=== PATIENT | female | born 1950 | race Caucasian/White ===

== ENCOUNTER 2016-03-11 07:02 | Emergency (ER) | payer BC ==
[2016-03-11 07:13] VITALS: BP 96/55
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
== END 2016-03-11 07:46 | disposition home or self-care (01) ==
LOC: UCCORT 07:02
DX: J20.9 Acute bronchitis, unspecified (principal); Z88.0 Allergy status to penicillin; Z88.2 Allergy status to sulfonamides; Z87.891 Personal history of nicotine dependence
CPT/HCPCS: 99212; G0463

== ENCOUNTER 2016-03-27 07:55 | Emergency (ER) | payer BC ==
[2016-03-27 08:21] VITALS: BP 130/66
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
[2016-03-27] MEDS ORDERED: Acetaminophen TAB* 325 MG PO ONE (08:25)
--- NOTE | 2016-03-27 08:42 | RAD ---
INDICATION: Cough and fever COMPARISON: None TECHNIQUE: PA and lateral views of the chest were obtained. FINDINGS: The heart and mediastinum are normal in size and contour. There is mild to moderate prior bronchial cuffing identified on the lateral and AP view images. The lungs are grossly clear. There is no evidence of large pleural effusion. Visualized bones are normal for the patient's age. There is no radiographic evidence of free air beneath the diaphragm IMPRESSION: MILD PERIBRONCHIAL CUFFING CAN BE SEEN IN THE SETTING OF INFLAMMATORY LUNG DISEASE OR VIRAL PNEUMONIA.
== END 2016-03-27 09:16 | disposition home or self-care (01) ==
LOC: UCCORT 07:55
DX: J09.X1 Influenza due to identified novel influenza A virus with pneumonia (principal); J18.8 Other pneumonia, unspecified organism; Z87.891 Personal history of nicotine dependence
CPT/HCPCS: 71020; 87502; 99212; A9270-GY; G0463

== ENCOUNTER 2017-10-27 16:31 | Emergency (ER) | payer MEDICARE, BC ==
[2017-10-27 19:24] VITALS: BP 99/61
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
[2017-10-27] MEDS ORDERED: HYDROcodone/ACETAMIN 5-325 MG* 1 TAB PO ONE (21:24)
--- NOTE | 2017-10-27 21:40 | RAD ---
EXAM: CT Lumbar Spine Without Intravenous Contrast EXAM DATE/TIME: 10/27/2017 8:39 PM CLINICAL HISTORY: 67 years old, female; Pain; Other: Rt sided low back pain with pain radiating down rle; Prior surgery; Surgery date: 1-6 months; Surgery type: L3-5 decompression/laminectomy at [place], [place]; Patient HX: Pt was lifting pots on her patio on wednesday, pain started on wednesday, worsening over past 4 days; Additional info: Rt low back/rt sciatic pain TECHNIQUE: Axial computed tomography images of the lumbar spine without intravenous contrast. All CT scans at this facility use at least one of these dose optimization techniques: automated exposure control; mA and/or kV adjustment per patient size (includes targeted exams where dose is matched to clinical indication); or iterative reconstruction. Coronal and sagittal reformatted images were created and reviewed. COMPARISON: No relevant prior studies available. FINDINGS: Vertebrae: Mild dextroconvex curvature. Grade 1 anterolisthesis of L3 on L4. Vertebral body heights are preserved. Mild to moderate prevertebral osteophytosis. L3-L4: Previous laminectomy without significant central canal stenosis. Moderate bilateral foraminal stenosis. L4-L5: Previous laminectomy without significant central canal stenosis. Moderate to severe right and mild to moderate left foraminal stenosis. No acute fracture. Discs/spinal canal/neural foramina: L1-L2: No significant central or foraminal stenosis. L2-L3: No significant central or foraminal stenosis. L5-S1: No significant central canal stenosis. Moderate right and mild left foraminal stenosis. Soft tissues: Unremarkable. Vasculature: Vascular calcification. IMPRESSION: No acute osseous abnormality. Degenerative in postoperative changes as above.
== END 2017-10-27 21:36 | disposition home or self-care (01) ==
LOC: UCCORT 16:31
DX: M54.30 Sciatica, unspecified side (principal); Z88.0 Allergy status to penicillin; Z88.5 Allergy status to narcotic agent; Z88.2 Allergy status to sulfonamides; Z87.891 Personal history of nicotine dependence
CPT/HCPCS: 72131; 99212; G0463

== ENCOUNTER 2018-12-17 11:04 | Emergency (ER) | payer MEDICARE, BC ==
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
--- OUTSIDE RECORDS SUMMARY | 2018-12-17 12:47 | XMS REPORT | Continuity of Care Document ---
:1950 External Reference #:[id number] Author Name Marc Lazar, Address [address] [place] [address] Care Team Providers Name Role Phone Luisa Patton MD - Family Medicine Care Team Information Child Daycare Worker Stephanie Posadas PT, DPT - Physical Care Team Information Child Daycare Worker Therapist Walter Cruz MD - Neurological Care Team Information Child Daycare Worker Surgery Young Ware Dr Care Team Information Child Daycare Worker [phone] Problems Active Problems Provider Date Allergic rhinitis due to pollen Walter Hannah MD Onset: 04/06/2006 Irritable bowel syndrome Luisa Patton MD Onset: 02/27/2011 Osteopenia Luisa Patton MD Onset: 12/16/2015 Mixed hyperlipidemia Luisa Patton MD Onset: 12/17/2016 Thoracic and lumbosacral neuritis Luisa Patton MD Onset: 03/08/2018 Social History Type Date Description Comments Sex Unknown Tobacco Use Start: 02[birth year]08/65 End: Former Cigarette Smoker 02/08/86 Cigarette Use Pack Years - 20 Smoking Status Reviewed: 03/08/18 Former Cigarette Smoker ETOH Use Rarely consumes alcohol Tobacco Use Start: Unknown End: Patient is a former smoker Unknown Exercise Type/Frequency Exercises sporadically Allergies, Adverse Reactions, Alerts Active Allergies Reaction Severity Comments Date Sulfa Rash 04/06/2006 Penicillins Hives 02/27/2011 Medications Active Medications SIG Qnty Indications Ordering Date Provider Diclofenac-Misoprostol 1 by mouth 90tabs M51.16 Marc Lazar, 11/30/2017 three times a DO 75-0.2mg Tablets DR day as needed Tramadol HCL 1 by mouth 60tabs Marc Lazar, 50mg Tablets every 6 hours DO as needed severe pain Hydrocodone-Acetaminophe 2 every 4 hours 30tabs Marc Lazar, n as needeD DO 5-325mg Tablets Cyclobenzaprine HCL take 1 tablet 30tabs Luisa Patton, 10mg by mouth every MD Tablets night at bedtime as needed muscle spasm Tylenol 2 tabs 2-3 Unknown 500mg Tablets times daily as needed Immunizations CPT Code Status Date Vaccine Reaction Lot # [id number] Given 03/07/2018 Pneumococcal 23 Immunization Adult Or Immunosuppressed Patient 58555 Given 11/09/2017 Fluzone Highdose Age 65 And Over Preservative & Antibiotic Free 62633 Given 03/05/2017 Prevnar 13 Pneumococal Conjugate Vaccine Q2039 Given 02/16/2017 Flu Vaccine NOS 96799 Given 11/13/2013 Afluria Or Fluvirin Flu Vac Intramuscular [facility] [address] Refused 02/22/2018 Shingrix (Shingles) Zoster Vaccine HZV, Recombinant , Subunit, Adj 84904 Refused 02/22/2018 Prevnar 13 Pneumococal Conjugate Vaccine Vital Signs Date Vital Result Comment 11/09/2018 4:22pm Weight 128.00 lb Heart Rate 64 /min BP Systolic 110 mmHg BP Diastolic 68 mmHg Respiratory Rate 17 /min Height 63.5 inches 5'3.50" BMI (Body Mass Index) 22.3 kg/m2 10/05/2018 4:19pm Weight 127.00 lb Heart Rate 82 /min BP Systolic 94 mmHg BP Diastolic 54 mmHg Respiratory Rate 16 /min Height 63.5 inches 5'3.50" BMI (Body Mass Index) 22.1 kg/m2 Results Description No Information Available Procedures Date Code Description Status 11/09/2018 42015 Omt 3-4 Body Regions Completed 10/05/2018 11554 Omt 3-4 Body Regions Completed 08/22/2018 88219 Omt 7-8 Body Regions Completed 07/13/2018 31583 Omt 5-6 Body Regions Completed 03/03/2018 [id number] Bone Mineral Density Test Completed 12/13/2015 052872029 Bone Mineral Density Test Completed 09/24/2014 41730717 Mammogram Completed 10/16/2013 [id number] Colonoscopy Completed Medical Devices Description No Information Available Encounters Type Date Location Provider Dx Diagnosis Office Visit 11/09/2018 [facility] Marc Lazar DO M51.16 Intervertebral disc 4:15p disorders w radiculopathy, lumbar region M99.03 Segmental and somatic dysfunction of lumbar region M54.2 Cervicalgia M25.561 Pain in RIGHT knee Office Visit 08/22/2018 4:15p Marc Schaefer DO M51.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, lumbar region M99.03 Segmental and somatic dysfunction of lumbar region M54.2 Cervicalgia Office Visit 07/13/2018 4:15p [facility] Marc Lazar DO M51.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, lumbar region M99.03 Segmental and somatic dysfunction of lumbar region M54.2 Cervicalgia M99.00 Segmental and somatic dysfunction of head region M99.01 Segmental and somatic dysfunction of cervical region M99.04 Segmental and somatic dysfunction of sacral region M99.07 Segmental and somatic dysfunction of upper extremity Assessments Date Code Description Provider 11/09/2018 M51.16 Intervertebral disc disorders with Marc Lazar DO radiculopathy, lumbar reg 11/09/2018 M99.03 Segmental and somatic dysfunction of lumbar Marc Lazar , DO region 11/09/2018 M54.2 Cervicalgia Marc Lazar, 11/09/2018 M25.561 Pain in RIGHT knee Marc Lazar DO 10/05/2018 M51.16 Intervertebral disc disorders with Marc Lazar DO radiculopathy, lumbar reg 10/05/2018 M99.03 Segmental and somatic dysfunction of lumbar Marc Lazar , region 10/05/2018 M54.2 Cervicalgia Marc Lazar, 10/05/2018 M25.561 Pain in RIGHT knee Marc Lazar, 08/22/2018 M51.16 Intervertebral disc disorders with Marc Lazar DO radiculopathy, lumbar reg 08/22/2018 M99.03 Segmental and somatic dysfunction of lumbar Marc Lazar , DO region 08/22/2018 M54.2 Cervicalgia Marc Lazar, 07/13/2018 M51.16 Intervertebral disc disorders with Marc Lazar DO radiculopathy, lumbar reg 07/13/2018 M99.03 Segmental and somatic dysfunction of lumbar Lori LazarDO keiko region 07/13/2018 M54.2 Cervicalgia Marc Lazar DO 07/13/2018 M99.00 Segmental and somatic dysfunction of head Nagi Marc, DO region 07/13/2018 M99.01 Segmental and somatic dysfunction of cervical Nagi Marc, DO region 07/13/2018 M99.04 Segmental and somatic dysfunction of sacral Nagi Marc , DO region 07/13/2018 M99.07 Segmental and somatic dysfunction of upper Nagi Marc , DO extremity Plan of Treatment Future Appointment(s):12/15/2018 4:15 pm - Marc Lazar DO at [facility]03/02/2019 7:30 am - Schedule, Laboratory at [facility]03/09/2019 10:30 am - Luisa Patton MD at [facility]11/09/2018 - Marc Lazar, DOM51.16 Intervertebral disc disorders with radiculopathy, lumbar regComments:MRI has shown that she has a large disc herniation at L3-L4 and a smaller one at L4-L5. She had an L3-L4 decompression. Doing better after last facet injection in 01/25 and 04/26. No longer on regular pain medications other than Diclofenac 2-3 times a day. Uses hydrocodone or tramadol sparingly now. Treated with a manipulation today and she tolerated this well.Follow up:The patient will follow up with me as scheduled.M99.03 Segmental and somatic dysfunction of lumbar regionComments:4 areas- lumbar, sacrum, piriformis, and pelvis- treated with OMT as noted [id number] CervicalgiaComments:Pt has neck pain with spasm on the R. She has some moderate degenerative changes on x-ray. Will see her back and will do another manipulation in the future if needed.M25.561 Pain in RIGHT kneeComments: MRI was reviewed with the patient. Recommended facet injection and has been waiting for it. Encourage the patient to follow up with Ortho, Functional Status Description No Information Available Mental Status Description No Information Available Referrals Description No Information Available
--- OUTSIDE RECORDS SUMMARY | 2018-12-17 12:47 | XMS REPORT | Continuity of Care Document ---
:1950 External Reference #:[id number] Author Name Marc Lazar, Address [address] [place] [address] Care Team Providers Name Role Phone Luisa Patton MD - Family Medicine Care Team Information Communication Lecturer [phone] Stephanie Posadas PT, DPT - Physical Care Team Information Communication Lecturer Therapist Walter Cruz MD - Neurological Care Team Information Communication Lecturer Surgery Young [address] Care Team Information Communication Lecturer [phone] Problems Active Problems Provider Date Allergic rhinitis [...] Code Status Date Vaccine Reaction Lot # [id number] Given 12/01/2018 Influenza Vac, Quadrivalent, Split, 0.5mL Dosage, Im Use 64763 Given 03/07/2018 Pneumococcal 23 Immunization Adult Or Immunosuppressed Patient 50627 Given 11/09/2017 Fluzone Highdose Age 65 And Over Preservative & Antibiotic Free 36385 Given 03/05/2017 Prevnar 13 Pneumococal Conjugate Vaccine Q2039 Given 02/16/2017 Flu Vaccine NOS 61918 Given 11/13/2013 Afluria Or Fluvirin Flu Vac Intramuscular [facility] 27570 Refused 02/22/2018 Shingrix (Shingles) Zoster Vaccine HZV, Recombinant , Subunit, Adj 54952 Refused 02/22/2018 Prevnar 13 Pneumococal Conjugate Vaccine Vital Signs Date Vital Result Comment 12/15/2018 4:13pm Weight 129.00 lb Heart Rate 76 /min BP Systolic 106 mmHg BP Diastolic 68 mmHg Respiratory Rate 17 /min Height 63.5 inches 5'3.50" BMI (Body Mass Index) 22.5 kg/m2 11/09/2018 4:22pm Weight 128.00 lb Heart Rate 64 /min BP Systolic 110 mmHg BP Diastolic 68 mmHg Respiratory Rate 17 /min Height 63.5 inches 5'3.50" BMI (Body Mass Index) 22.3 kg/m2 Results Description No Information Available Procedures Date Code Description Status 12/15/2018 95942 Omt 5-6 Body Regions Completed 11/09/2018 95125 Omt 3-4 Body Regions Completed 10/05/2018 29734 Omt 3-4 Body Regions Completed 08/22/2018 83550 Omt 7-8 Body Regions Completed 07/13/2018 81794 Omt 5-6 Body Regions Completed 03/03/2018 198924855 Bone Mineral Density Test Completed 12/13/2015 958471155 Bone Mineral Density Test Completed 09/24/2014 80785620 Mammogram Completed 10/16/2013 80073272 Colonoscopy Completed Medical Devices Description No Information Available Encounters Type Date Location Provider Dx Diagnosis Office Visit 11/09/2018 [facility] Marc Lazar DO M51.16 Intervertebral disc 4:15p disorders w radiculopathy, lumbar region M99.03 Segmental and somatic dysfunction of lumbar region M54.2 Cervicalgia M25.561 Pain in RIGHT knee M99.04 Segmental and somatic dysfunction of sacral region M99.05 Segmental and somatic dysfunction of pelvic region Office Visit 10/05/2018 4:15p [facility] Marc Lazar DO M51.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, lumbar region M99.03 Segmental and somatic dysfunction of lumbar region M54.2 Cervicalgia M25.561 Pain in RIGHT knee M99.04 Segmental and somatic dysfunction of sacral region M99.05 Segmental and somatic dysfunction of pelvic region Office Visit 08/22/2018 4:15p [facility] Marc Lazar DO M51.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, lumbar region M99.03 Segmental and somatic dysfunction of lumbar region M54.2 Cervicalgia Office Visit 07/13/2018 4:15p [facility] Marc Lazar DO M51.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, lumbar region M99.03 Segmental and somatic dysfunction of lumbar region M54.2 Cervicalgia M99.00 Segmental and somatic dysfunction of head region M99.01 Segmental and somatic dysfunction of cervical region M99.04 Segmental and somatic dysfunction of sacral region M99.07 Segmental and somatic dysfunction of upper extremity Assessments Date Code Description Provider 12/15/2018 M51.16 Intervertebral disc disorders with Marc Lazar DO radiculopathy, lumbar reg 12/15/2018 M99.03 Segmental and somatic dysfunction of lumbar Marc Lazar DO region 12/15/2018 M54.2 Cervicalgia Marc Lazar DO 12/15/2018 M25.561 Pain in RIGHT knee Marc Lazar DO 11/09/2018 M51.16 Intervertebral disc disorders with Marc Lazar DO radiculopathy, lumbar reg 11/09/2018 M99.03 Segmental and somatic dysfunction of lumbar Marc Lazar , region 11/09/2018 M54.2 Cervicalgia Marc Lazar, DO 11/09/2018 M25.561 Pain in RIGHT knee Marc Lazar, DO 11/09/2018 M99.04 Segmental and somatic dysfunction of sacral Marc Lazar , region 11/09/2018 M99.05 Segmental and somatic dysfunction of pelvic Marc Lazar , DO region 10/05/2018 M51.16 Intervertebral disc disorders with Marc Lazar DO radiculopathy, lumbar reg 10/05/2018 M99.03 Segmental and somatic dysfunction of lumbar Marc Lazar DO region 10/05/2018 M54.2 Cervicalgia Marc Lazar, DO 10/05/2018 M25.561 Pain in RIGHT knee Marc LazarDO 10/05/2018 M99.04 Segmental and somatic dysfunction of sacral Marc Lazar , region 10/05/2018 M99.05 Segmental and somatic dysfunction of pelvic Marc Lazar , region 08/22/2018 M51.16 Intervertebral disc disorders with Marc Lazar DO radiculopathy, lumbar reg 08/22/2018 M99.03 Segmental and somatic dysfunction of lumbar Marc Lazar DO region 08/22/2018 M54.2 Cervicalgia Marc LazarDO 07/13/2018 M51.16 Intervertebral disc disorders with Marc Lazar DO radiculopathy, lumbar reg 07/13/2018 M99.03 Segmental and somatic dysfunction of lumbar Marc Lazar DO region 07/13/2018 M54.2 Cervicalgia Marc LazarDO 07/13/2018 M99.00 Segmental and somatic dysfunction of head LazarMarc laird DO region 07/13/2018 M99.01 Segmental and somatic dysfunction of cervical LazarMarc laird DO region 07/13/2018 M99.04 Segmental and somatic dysfunction of sacral LazarMarc laird DO region 07/13/2018 M99.07 Segmental and somatic dysfunction of upper Marc Lazar DO extremity Plan of Treatment Future Appointment(s):01/16/2019 4:15 pm - Marc Lazar DO at [facility]03/02/2019 7:30 am - Schedule, Laboratory at [facility]03/09/2019 10:30 am - Luisa Patton MD at [facility]12/15/2018 - Marc Lazar, DOM51.16 Intervertebral disc disorders [...] scheduled.M99.03 Segmental and somatic dysfunction of lumbar regionComments:5 areas-thoracic, lumbar, sacrum, piriformis, and pelvis- treated with OMT as noted [id number] CervicalgiaComments:Pt has neck pain with spasm on the R. She has some moderate degenerative changes on x-ray. Will see her back and will do another manipulation in the future if needed.M25.561 Pain in RIGHT knee Functional Status Description No Information Available Mental Status Description No Information Available Referrals Description No Information Available
[2018-12-17 12:55] VITALS: BP 112/62
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
== END 2018-12-17 13:16 | disposition home or self-care (01) ==
LOC: UCCORT 11:04
DX: H10.31 Unspecified acute conjunctivitis, right eye (principal); Z87.891 Personal history of nicotine dependence; Z88.0 Allergy status to penicillin; Z88.2 Allergy status to sulfonamides; Z88.5 Allergy status to narcotic agent
CPT/HCPCS: 99212; G0463

== ENCOUNTER 2019-05-02 15:49 | Emergency (ER) | payer MEDICARE, BC ==
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
[2019-05-02 16:16] VITALS: BP 112/55
[2019-05-02] MEDS ORDERED: Aspirin 81 mg CHEW TAB* 81 MG TAB.CHEW PO ONE (16:48)
--- OUTSIDE RECORDS SUMMARY | 2019-05-02 16:56 | XMS REPORT | Continuity of Care Document ---
:1950 External Reference #:[id number] Author Name Marc Lazar DO (transmitted by agent of provider Holli GREEN) Address [address] [place] [address] Care Team Providers Name Role Phone Luisa Patton MD - Family Medicine Care Team Information Water Pump Assembler Stephanie Posadas PT, DPT - Physical Care Team Information Water Pump Assembler Therapist Walter Cruz MD - Neurological Care Team Information Water Pump Assembler Surgery [address] Care Team Information Water Pump Assembler [phone] Problems Active Problems Provider Date Allergic rhinitis due to pollen Walter Hannah MD Onset: 04/06/2006 Irritable bowel syndrome Luisa Patton MD Onset: 02/27/2011 Osteopenia Luisa Patton MD Onset: 12/16/2015 Mixed hyperlipidemia Luisa Patton MD Onset: 12/17/2016 Thoracic and lumbosacral neuritis Luisa Patton MD Onset: 03/08/2018 Vitamin D deficiency Luisa Patton MD Onset: 03/09/2019 Social History Type Date Description Comments Sex Unknown Tobacco Use Start: 02/08/65 End: Former Cigarette Smoker 02/08/86 Cigarette Use Pack Years - 20 Smoking Status Reviewed: 03/09/19 Former Cigarette Smoker ETOH Use Rarely consumes alcohol Tobacco Use Start: Unknown End: Patient is a former smoker Unknown Exercise Type/Frequency Exercises sporadically Allergies, Adverse Reactions, Alerts Active Allergies Reaction Severity Comments Date Sulfa Rash 04/06/2006 Penicillins Hives 02/27/2011 Medications Active Medications SIG Qnty Indications Ordering Provider Date Vitamin D 1 by mouth every E55.9 Luisa Patton, 03/09/2019 2000Unit day MD Tablets Diclofenac Potassium by mouth three 90tabs M51.16 Luisa Patton, 2019 50mg times a day as MD Tablets needed Pantoprazole Sodium 1 by mouth every 90tabs R07.9 Luisa Patton, 2018 40mg day MD Tablets R10.13 Tramadol HCL 1 by mouth every 6 60tabs Luisa Patton MD 50mg Tablets hours as needed severe pain Hydrocodone-Acetaminophen 2 every 4 hours as 30tabs Marc Lazar DO needeD 5-325mg Tablets Tylenol 2 tabs 2-3 times Unknown 500mg Tablets daily as needed Tizanidine HCL 1 by mouth every Unknown 4mg Tablets night at bedtime for muscle spasms Magnesium 1 by mouth every day Unknown 500mg Capsules Immunizations CPT Code Status Date Vaccine Reaction Lot # [id number] Given 12/01/2018 Influenza Vac, Quadrivalent, Split, 0.5mL Dosage, Im Use 23757 Given 03/07/2018 Pneumococcal 23 Immunization Adult Or Immunosuppressed Patient 92447 Given 11/09/2017 Fluzone Highdose Age 65 And Over Preservative & Antibiotic Free 99370 Given 03/05/2017 Prevnar 13 Pneumococal Conjugate Vaccine Q2039 Given 02/16/2017 Flu Vaccine NOS 03029 Given 11/13/2013 Afluria Or Fluvirin Flu Vac Intramuscular [facility] 46389 Refused 02/22/2018 Shingrix (Shingles) Zoster Vaccine HZV, Recombinant , Subunit, Adj 24720 Refused 02/22/2018 Prevnar 13 Pneumococal Conjugate Vaccine Vital Signs Date Vital Result Comment 04/19/2019 4:23pm Weight 128.00 lb Heart Rate 68 /min BP Systolic 118 mmHg BP Diastolic 68 mmHg Respiratory Rate 18 /min Height 63.5 inches 5'3.50" BMI (Body Mass Index) 22.3 kg/m2 03/30/2019 4:18pm Weight 128.00 lb Heart Rate 72 /min BP Systolic 114 mmHg BP Diastolic 66 mmHg Respiratory Rate 17 /min Height 63.5 inches 5'3.50" BMI (Body Mass Index) 22.3 kg/m2 Results Test Acquired Date Facility Test Result H/L Range Note Laboratory test 03/03/2019 [facility] Vitamin D 25 23 ng/mL Low 30-100 1, 2 finding Hydroxy Comprehensive Met 03/03/2019 [facility] Sodium 143 mmol/L 135-146 3 [facility] Potassium 4.2 mmol/L 3.5-5.2 Chloride# 105 mmol/L 97-110 4 Carbon Dioxide 33 mmol/L 24-34 Calcium 10.0 mg/dL 8.5-10.5 5 Glucose 92 mg/dL 70-105 BUN 19 mg/dL 6-26 Creatinine 0.7 mg/dL 0.5-1.4 Total Protein 6.6 g/dL 6.0-8.0 Albumin 4.6 g/dL 3.6-4.9 Globulin 2.0 g/dL 2.0-3.5 A/G Ratio 2.3 Ratio High 1.0-2.2 Total Bilirubin 0.7 mg/dL 0.1-1.3 Alkaline Phosphatase 70 U/L 24-140 Alt 14 U/L 3-42 Ast 14 U/L 8-42 Anion Gap 5 mmol/L 5-15 6 Female Egfr 90 >60 7 Male Egfr 98 >60 8 CBC With Auto Diff 03/03/2019 [facility] WBC 6.6 K/uL 4.1-11.0 9 RBC 4.22 M/uL 4.00-5.40 10 Hemoglobin 12.9 gm/dL 12.0-16.0 11 Hematocrit 38.2 % 36.0-47.0 12 MCV 90.4 fL 80.0-95.0 13 MCH 30.5 pg 27.0-32.0 14 MCHC 33.8 g/dL 32.0-36.0 15 RDW 12.8 % 10.5-14.5 16 PLT Count 220 K/ul 150-400 17 MPV 9.8 FL 7.1-10.7 Neutrophil 62.1 % 35.0-75.0 18 Lymphocyte 24.8 % 16.0-52.0 19 Monocyte 8.8 % High 0.0-8.0 20 Eosinophil 3.3 % 0.0-5.0 Basophil 1.0 % 0.0-4.0 Abs Neutrophils 4.1 K/uL 1.8-7.7 21 Abs Lymphocytes 1.6 K/uL 1.2-4.8 22 Abs Monocytes 0.6 K/uL 0.0-0.8 23 Abs Eosinophils 0.2 K/uL 0.0-0.5 24 Abs Basophils 0.1 K/uL 0.0-0.2 25 Laboratory test finding 03/03/2019 [facility] TSH 1.26 uIU/mL 0.35-4.94 Lipid 03/03/2019 [facility] Cholesterol 223 mg/dL High 50-199 Triglycerides 57 mg/dL 30-200 HDL 74 mg/dL 35-85 26 Chol/ HDL Ratio 3.0 ratio Low 3.7-5.6 VLDL 11 mg/dL 2-29 LDL (Calc) 138 mg/dL High 20-99 27 CBC with Auto 02/03/2019 [facility] White Blood 7.3 K/uL Normal 3.1-10.7 28 Diff-[facility]cmg (315)- - Count Red Blood Count 4.10 M/uL Normal 3.90-5.40 Hemoglobin 12.2 gm/dL Normal 11.6-15.8 Hematocrit 37.8 % Normal 36.0-46.1 Mean Cell Volume 92.2 fl Normal 80.9-99.0 Mean Corpuscular HGB 29.8 pg Normal 25.9-32.7 Mean Corpuscular HGB Conc 32.3 g/dL Normal 30.8-34.3 Platelet Count 235 K/uL Normal 155-360 Red Cell Distri Width SD 42.1 fl Normal 36-47 Red Cell Distri Width %CV 12.5 % Normal 11.7-14.4 Mean Platelet Volume 11.3 fl Normal 8.9-12.4 Neut% 59.4 % Normal 40.4-72.8 Lymph % 28.5 % Normal 20.0-42.0 [place] % 8.3 % Normal 4.3-13.2 Eo% 2.7 % Normal 0.0-6.6 Bas% 0.8 % Normal 0.0-1.1 Immature Grans 0.3 % Normal 0.0-5.0 NRBC % 0.0 /100WBC < 10/ 100 WBC Neut# 4.35 K/uL Normal 1.8-7.0 Lymph # 2.09 K/uL Normal 1.0-4.0 [place] # 0.61 K/uL Normal 0.3-0.9 Eos # 0.20 K/uL Normal 0.0-0.5 Baso # 0.06 K/uL Normal 0.0-0.1 Immature Grans Absolute 0.02 K/uL NRBC # 0.00 K/uL Comprehensive 02/03/2019 [facility] Glucose 94 mg/dL Normal 74-106 Metabolic Panel (315)- - BUN 18 mg/dL Normal 7-18 Creatinine 0.7 mg/dL Normal 0.6-1.3 Glom Filtration Rate, Estimate >60 mL/min >60 If >60 mL/min >60 29 BUN/Creat 25.7 ratio Sodium 138 mmol/L Normal 136-145 Potassium 3.9 mmol/L Normal 3.5-5.1 Chloride 106 mmol/L Normal 98-107 Carbon Dioxide 29 mmol/L Normal 21-32 Anion Gap 3 mEq/L Low 8-16 Calcium 9.4 mg/dL Normal 8.5-10.1 Total Protein 7.4 g/dL Normal 6.4-8.2 Albumin 4.1 g/dL Normal 3.4-5.0 Globulin 3.3 g/dL Normal 1.9-4.3 Alb/Glob 1.2 ratio Bilirubin,Total 0.5 mg/dL Normal 0.2-1.0 Sgot/Ast 18 U/L Normal 15-37 SGPT/Alt 25 U/L Normal 12-78 Alkaline Phosphatase 75 U/L Normal 45-117 Laboratory test 02/03/2019 [facility] Troponin-I < 0.015 ng/mL 30 finding (315)- - 1 1 year 2 Clinical Guidelines for recommended serum 25(OH)Vitamin D Deficient at less than 20 ng/mL Insufficient at 20 to <30 ng/mL Sufficient at 30-100 ng/mL Toxicity at greater than 100 ng/mL 3 Updated reference range on new analyzer 4 Updated reference range on new analyzer 5 Updated reference range 06-08-2018 6 Updated Reference Range 7 Concerning GFR Guidelines for Americans: Normal function or mild renal disease, if clinically at risk: >/= 60 mL/min Moderately decreased: 30-59 Severely decreased: 15-29 Renal failure: <15 There is reduced accuracy above 60ml/min/1.73 m squared, but the numeric value may be clinically useful in the near 60 range 8 Concerning GFR Guidelines: Normal function or mild renal disease, if clinically at risk: >/= 60 mL/min Moderately decreased: 30-59 Severely decreased: 15-29 Renal failure: <15 There is reduced accuracy above 60ml/min/1.73 m squared, but the numeric value may be clinically useful in the near 60 range Glomerular Filtration Rate (GFR) is estimated based on the CKD-EPI equation, which assumes a steady state for creatinine as recommended by the National Kidney Disease Education Program in conjunction with the National Institutes of Health and the National Kidney Foundation. Clinical conditions in which it may be necessary to measure GFR by using clearance methods include extremes of age and body size, severe malnutrition or obesity, diseases of skeletal muscle, paraplegia or quadriplegia, vegetarian diet, rapidly changing kidney function, and calculation of the dose of potentially toxic drugs that are excreted by the kidneys. 9 Updated Reference Range 12/2018 10 Updated Reference Range 12/2018 11 Updated Reference Range 12/2018 12 Updated Reference Range 12/2018 13 Updated Reference Range 12/2018 14 Updated Reference Range 12/2018 15 Updated Reference range 12/2018 16 Updated Reference range 12/2018 17 Updated Reference Range 12/2018 18 Updated Reference Range 12/2018 19 Updated Reference Range 12/2018 20 Updated Reference Range 12/2018 21 Updated Reference Range 12/2018 22 Updated Reference Range 12/2018 23 Updated Reference Range 12/2018 24 Updated Reference Range 12/2018 25 Updated Reference Range 12/2018 26 Per NCEP ATP III Guidelines: Results lower than 40 mg/dL are suggestive of increased risk for coronary artery disease. Results > or = to 60 mg/dL are considered a negative risk factor. 27 Per NCEP ATP III Guidelines: Normal Population <130 Patients with medical conditions: CHD/DM Optimal: <100 Borderline high: 130-159 High: 160-189 Very high: >189 28 R07.9 29 Note: Persistent reduction for 3 months or more in an eGFR <60 mL/min/1.73 m2 defines CKD. Patients with eGFR values >/=60 mL/min/1.73 m2 may also have CKD if evidence of persistent proteinuria is present. The original MDRD equation for estimated GFR is not valid for patients less than 18 years of age. Additional information may be found at www.kdoqi.org. 30 0.0 - 0.045 ng/mL: Normal 0.046 - 0.5 ng/mL: Suggestive 0.6 - 1.5 ng/mL: Consistent Procedures Date Code Description Status 04/19/2019 73455 Omt 7-8 Body Regions Completed 03/30/2019 53502 Omt 7-8 Body Regions Completed 02/23/2019 41534 Omt 5-6 Body Regions Completed 02/03/2019 54522 Electrocardiogram Complete Completed 01/16/2019 21272 Omt 5-6 Body Regions Completed 12/15/2018 92154 Omt 5-6 Body Regions Completed 11/09/2018 81189 Omt 3-4 Body Regions Completed 03/03/2018 224932990 Bone Mineral Density Test Completed 12/13/2015 128547663 Bone Mineral Density Test Completed 09/24/2014 20050492 Mammogram Completed 10/16/2013 52479785 Colonoscopy Completed Medical Devices Description No Information Available Encounters Type Date Location Provider Dx Diagnosis Office Visit 03/09/2019 [facility] Luisa Patton MD Z00.00 Encntr for general 10:30a adult medical exam w/o abnormal findings Z13.31 Encounter for screening for depression J30.1 Allergic rhinitis due to pollen K58.9 Irritable bowel syndrome without diarrhea M85.80 Oth disrd of bone density and structure, unspecified site E78.2 Mixed hyperlipidemia M51.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, lumbar region E55.9 Vitamin D deficiency, unspecified K21.9 Gastro-esophageal reflux disease without esophagitis Office Visit 02/03/2019 3:15p [facility] Luisa Patton MD R07.9 Chest pain, unspecified R10.13 Epigastric pain M51.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, lumbar region Office Visit 11/09/2018 4:15p [facility] Marc Lazar DO M51.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, lumbar region M99.03 Segmental and somatic dysfunction of lumbar region M54.2 Cervicalgia M25.561 Pain in RIGHT knee M99.04 Segmental and somatic dysfunction of sacral region M99.05 Segmental and somatic dysfunction of pelvic region Assessments Date Code Description Provider 04/19/2019 M51.16 Intervertebral disc disorders with Marc Lazar DO radiculopathy, lumbar reg 04/19/2019 M99.03 Segmental and somatic dysfunction of lumbar Marc Lazar DO region 04/19/2019 M54.2 Cervicalgia Marc Lazar DO 04/19/2019 M25.561 Pain in RIGHT knee Marc Lazar, DO 04/19/2019 K21.9 Gastro-esophageal reflux disease without LazarMarc, esophagitis 04/19/2019 M99.00 Segmental and somatic dysfunction of head LazarMarc laird, DO region 04/19/2019 M99.01 Segmental and somatic dysfunction of cervical LazarMarc laird, DO region 04/19/2019 M99.04 Segmental and somatic dysfunction of sacral LazarMarc laird , DO region 04/19/2019 M99.05 Segmental and somatic dysfunction of pelvic LazarMarc , DO region 04/19/2019 M99.07 Segmental and somatic dysfunction of upper LazarMarc laird , extremity 04/19/2019 M99.09 Segmental and somatic dysfunction of abdomen LazarMarc laird, DO and other regions 03/30/2019 M51.16 Intervertebral disc disorders with Marc Lazar, radiculopathy, lumbar reg 03/30/2019 M99.03 Segmental and somatic dysfunction of lumbar LazarMarc laird , region 03/30/2019 M54.2 Cervicalgia Marc Lazar, DO 03/30/2019 M25.561 Pain in RIGHT knee Marc Lazar, DO 03/30/2019 K21.9 Gastro-esophageal reflux disease without LazarMarc laird DO esophagitis 03/30/2019 M99.00 Segmental and somatic dysfunction of head LazarMarc laird, DO region 03/30/2019 M99.01 Segmental and somatic dysfunction of cervical LazarMarc laird, region 03/30/2019 M99.02 Segmental and somatic dysfunction of thoracic LazarMarc laird, DO region 03/30/2019 M99.04 Segmental and somatic dysfunction of sacral LazarMarc laird , DO region 03/30/2019 M99.05 Segmental and somatic dysfunction of pelvic LazarMarc laird , DO region 03/30/2019 M99.07 Segmental and somatic dysfunction of upper LazarMarc laird , extremity 03/09/2019 Z00.00 Encounter for general adult medical Luisa Patton MD examination without abnormal findings 03/09/2019 Z13.31 Encounter for screening for depression Luisa Patton MD 03/09/2019 J30.1 Allergic rhinitis due to pollen Luisa Patton MD 03/09/2019 K58.9 Irritable bowel syndrome without diarrhea Luisa Patton MD 03/09/2019 M85.80 Osteopenia Luisa Patton MD 03/09/2019 E78.2 Mixed hyperlipidemia Luisa Patton MD 03/09/2019 M51.16 Intervertebral disc disorders with Luisa Patton MD radiculopathy, lumbar region 03/09/2019 E55.9 Vitamin D deficiency, unspecified Luisa Patton MD 03/09/2019 K21.9 Gastro-esophageal reflux disease without Luisa Patton MD esophagitis 03/03/2019 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) [facility] 03/03/2019 M85.80 Other specified disorders of bone density and Luisa Patton MD structure, unspecified site 03/03/2019 M85.80 Other specified disorders of bone density and [facility] structure, unspecified site 03/03/2019 E55.9 Vitamin D deficiency, unspecified [facility] 03/03/2019 K58.9 Irritable bowel syndrome without diarrhea [facility] 03/03/2019 M85.80 Other specified disorders of bone density and Schedule, Laboratory structure, unspecified site 03/03/2019 E78.2 Mixed hyperlipidemia [facility] 03/03/2019 E55.9 Vitamin D deficiency, unspecified Luisa Patton MD 03/03/2019 J30.1 Allergic rhinitis due to pollen [facility] 03/03/2019 Z01.419 Encounter for gynecological examination [facility] (general) (routine) without abnormal findings 03/03/2019 E55.9 Vitamin D deficiency, unspecified Schedule, Laboratory 03/03/2019 K58.9 Irritable bowel syndrome without diarrhea Luisa Patton MD 03/03/2019 K58.9 Irritable bowel syndrome without diarrhea Schedule, Laboratory 03/03/2019 J30.1 Allergic rhinitis due to pollen Luisa Patton MD 03/03/2019 J30.1 Allergic rhinitis due to pollen Schedule, Laboratory 03/03/2019 Z01.419 Encounter for gynecological examination Luisa Ptaton MD (general) (routine) without abnormal findings 03/03/2019 Z01.419 Encounter for gynecological examination Schedule, Laboratory (general) (routine) without abnormal findings 02/23/2019 M51.16 Intervertebral disc disorders with Lazar, Marc, radiculopathy, lumbar reg 02/23/2019 M99.03 Segmental and somatic dysfunction of lumbar LazarMarc laird , DO region 02/23/2019 M54.2 Cervicalgia Marc Lazar, DO 02/23/2019 M25.561 Pain in RIGHT knee Marc Lazar, DO 02/23/2019 K21.9 Gastro-esophageal reflux disease without Marc Lazar, DO esophagitis 02/23/2019 M99.02 Segmental and somatic dysfunction of thoracic LazarMarc laird, DO region 02/23/2019 M99.04 Segmental and somatic dysfunction of sacral LazarMarc laird , DO region 02/23/2019 M99.05 Segmental and somatic dysfunction of pelvic LazarMarc laird , DO region 02/23/2019 M99.09 Segmental and somatic dysfunction of abdomen Marc Lazar, DO and other regions 02/03/2019 R07.9 Chest pain, unspecified Luisa Patton MD 02/03/2019 R10.13 Epigastric pain Luisa Patton MD 02/03/2019 M51.16 Intervertebral disc disorders with Luisa Patton MD radiculopathy, lumbar reg 01/16/2019 M51.16 Intervertebral disc disorders with Lazar Marc, radiculopathy, lumbar reg 01/16/2019 M99.03 Segmental and somatic dysfunction of lumbar LazarMarc laird , DO region 01/16/2019 M54.2 Cervicalgia Marc Lazar, DO 01/16/2019 M25.561 Pain in RIGHT knee Marc Lazar, DO 01/16/2019 M99.02 Segmental and somatic dysfunction of thoracic LazarMarc laird, DO region 01/16/2019 M99.04 Segmental and somatic dysfunction of sacral LazarMarc laird , DO region 01/16/2019 M99.05 Segmental and somatic dysfunction of pelvic LazarMarc laird , DO region 01/16/2019 M99.09 Segmental and somatic dysfunction of abdomen LazarMarc laird, DO and other regions 12/15/2018 M51.16 Intervertebral disc disorders with Nagi Marc, DO radiculopathy, lumbar reg 12/15/2018 M99.03 Segmental and somatic dysfunction of lumbar LazarMarc laird , DO region 12/15/2018 M54.2 Cervicalgia Marc Lazar, DO 12/15/2018 M25.561 Pain in RIGHT knee Marc Lazar, DO 12/15/2018 M99.02 Segmental and somatic dysfunction of thoracic Marc Lazar, region 12/15/2018 M99.04 Segmental and somatic dysfunction of sacral LazarMarc laird , region 12/15/2018 M99.05 Segmental and somatic dysfunction of pelvic LazarMarc laird , region 12/15/2018 M99.06 Segmental and somatic dysfunction of lower LazarMarc laird , DO extremity 11/09/2018 M51.16 Intervertebral disc disorders with Marc Lazar, radiculopathy, lumbar reg 11/09/2018 M99.03 Segmental and somatic dysfunction of lumbar Marc Lazar , region 11/09/2018 M54.2 Cervicalgia Marc Lazar, DO 11/09/2018 M25.561 Pain in RIGHT knee Marc Lazar, DO 11/09/2018 M99.04 Segmental and somatic dysfunction of sacral Marc Lazar , region 11/09/2018 M99.05 Segmental and somatic dysfunction of pelvic Marc Lazar , DO region Plan of Treatment Future Appointment(s):05/17/2019 4:15 pm - Marc Lazar DO at [facility]2020 7:40 am - Schedule, Laboratory at [facility]03/11/2020 1:00 pm - Luisa Patton MD at [facility]04/19/2019 - Marc Lazar, DOM51.16 Intervertebral disc disorders with radiculopathy, lumbar regComments:MRI has shown that she has a large disc herniation at L3-L4 and a smaller one at L4-L5. She had an L3-L4 decompression. Doing better after last facet injection in 01/25 and 04/26. Dr. Patton restarted the Diclofenac. Can use tramadol as needed. Uses hydrocodone sparingly now. Treated with a manipulation today and she tolerated this well. Recommended the patient to have injections as scheduled.Follow up:Follow up as scheduled.M99.03 Segmental and somatic dysfunction of lumbar kgarbkF79.2 CervicalgiaComments:Improved at the present time. Can take Tizandine as needed for this.M25.561 Pain in RIGHT kneeK21.9 Gastro-esophageal reflux disease without esophagitisComments:Continue taking Pantoprazole as directed. Can also take Famotidine. Will continue to monitor.M99.00 Segmental and somatic dysfunction of head sdkbmqS71.01 Segmental and somatic dysfunction of cervical rnkfkqB20.04 Segmental and somatic dysfunction of sacral hynkdhP56.05 Segmental and somatic dysfunction of pelvic rgfzctL48.07 Segmental and somatic dysfunction of upper roicgwfiuT67.09 Segmental and somatic dysfunction of abdomen and other regions Functional Status Description No Information Available Mental Status Description No Information Available Referrals Description No Information Available
--- OUTSIDE RECORDS SUMMARY | 2019-05-02 16:56 | XMS REPORT | Continuity of Care Document ---
:1950 External Reference #:[id number] Author Name Luisa Patton MD Address [address] [place] [address] Care Team Providers Name Role Phone Luisa Patotn MD - Family Medicine Care Team Information Latex Dipper Stephanie Posadas PT, DPT - Physical Care Team Information Latex Dipper [phone] Therapist Walter Cruz MD - Neurological Care Team Information Latex Dipper Surgery [address] Care Team Information Latex Dipper [phone] Problems Active Problems Provider Date Allergic rhinitis [...] Luisa Patton, 2018 40mg day MD Tablets DR R10.13 Tramadol HCL 1 by mouth every 6 60tabs Luisa Patton MD 50mg Tablets hours as needed severe pain Hydrocodone-Acetaminophen 2 every 4 hours as 30tabs Marc Lazar, needeD 5-325mg Tablets Tylenol 2 tabs 2-3 times Unknown 500mg Tablets daily as needed Tizanidine HCL 1 by mouth every Unknown 4mg Tablets night at bedtime for muscle spasms Magnesium 1 by mouth every day Unknown 500mg Capsules Immunizations CPT Code Status Date Vaccine Reaction Lot # [id number] Given 12/01/2018 Influenza Vac, Quadrivalent, Split, 0.5mL Dosage, Im Use 60696 Given 03/07/2018 Pneumococcal 23 Immunization Adult Or Immunosuppressed Patient 03687 Given 11/09/2017 Fluzone Highdose Age 65 And Over Preservative & Antibiotic Free 02913 Given 03/05/2017 Prevnar 13 Pneumococal Conjugate Vaccine Q2039 Given 02/16/2017 Flu Vaccine NOS 08429 Given 11/13/2013 Afluria Or Fluvirin Flu Vac Intramuscular [facility] 56454 Refused 02/22/2018 Shingrix (Shingles) Zoster Vaccine HZV, Recombinant , Subunit, Adj 76569 Refused 02/22/2018 Prevnar 13 Pneumococal Conjugate Vaccine Vital Signs Date Vital Result Comment 03/09/2019 10:53am Weight 125.00 lb Heart Rate 72 /min BP Systolic 112 mmHg BP Diastolic 70 mmHg Respiratory Rate 18 /min Height 63.5 inches 5'3.50" O2 % BldC Oximetry 97 % Ra BMI (Body Mass Index) 21.8 kg/m2 02/23/2019 4:14pm Weight 128.00 lb Heart Rate 84 /min BP Systolic 108 mmHg BP Diastolic 68 mmHg Respiratory Rate [...] K/uL 0.0-0.2 25 Laboratory test finding 03/03/2019 [facility] TSH 1.26 uIU/mL 0.35-4.94 Lipid 03/03/2019 [facility] Cholesterol 223 mg/dL High 50-199 Triglycerides 57 mg/dL 30-200 HDL 74 mg/dL 35-85 26 Chol/ HDL Ratio 3.0 ratio Low 3.7-5.6 VLDL 11 mg/dL 2-29 LDL (Calc) 138 mg/dL High 20-99 27 CBC with Auto 02/03/2019 [facility] White Blood 7.3 K/uL Normal [...] 40.4-72.8 Lymph % 28.5 % Normal 20.0-42.0 Person % 8.3 % Normal 4.3-13.2 Eo% 2.7 % Normal 0.0-6.6 Bas% 0.8 % Normal 0.0-1.1 Immature Grans 0.3 % Normal 0.0-5.0 NRBC % 0.0 /100WBC < 10/ 100 WBC Neut# 4.35 K/uL Normal 1.8-7.0 Lymph # 2.09 K/uL Normal 1.0-4.0 Person # 0.61 K/uL Normal 0.3-0.9 Eos # 0.20 K/uL Normal 0.0-0.5 Baso # 0.06 K/uL Normal 0.0-0.1 Immature Grans Absolute 0.02 K/uL NRBC # 0.00 K/uL Comprehensive 02/03/2019 [facility] Glucose 94 mg/dL Normal 74-106 [...] 75 U/L Normal 45-117 Laboratory test 02/03/2019 [facility] Troponin-I < 0.015 ng/mL 30 [...] ng/mL: Consistent Procedures Date Code Description Status 02/23/2019 57159 Omt 5-6 Body Regions Completed 02/03/2019 33072 Electrocardiogram Complete Completed 01/16/2019 42569 Omt 5-6 Body Regions Completed 12/15/2018 27961 Omt 5-6 Body Regions Completed 11/09/2018 72238 Omt 3-4 Body Regions Completed 10/05/2018 04922 Omt 3-4 Body Regions Completed 03/03/2018 [id number] Bone Mineral Density Test Completed 12/13/2015 023015807 Bone Mineral Density Test Completed 09/24/2014 82981647 Mammogram Completed 10/16/2013 81628783 Colonoscopy Completed Medical Devices Description No Information Available Encounters Type Date Location Provider Dx Diagnosis Office Visit 02/03/2019 [facility] Luisa Patton MD R07.9 Chest pain, 3:15p unspecified R10.13 Epigastric pain M51.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, lumbar region Office Visit 11/09/2018 4:15p [facility] Marc Lazar DO M51.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, lumbar region M99.03 Segmental and somatic dysfunction of lumbar region M54.2 Cervicalgia M25.561 Pain in RIGHT knee M99.04 Segmental and somatic dysfunction of sacral region M99.05 Segmental and somatic dysfunction of pelvic region Office Visit 10/05/2018 4:15p [facility] Marc Lazar DO M51.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, lumbar region M99.03 Segmental and somatic dysfunction of lumbar region M54.2 Cervicalgia M25.561 Pain in RIGHT knee M99.04 Segmental and somatic dysfunction of sacral region M99.05 Segmental and somatic dysfunction of pelvic region Assessments Date Code Description Provider 03/09/2019 Z00.00 Encounter for general adult medical [...] disease without Luisa Patton MD esophagitis 03/03/2019 M85.80 Other specified disorders of bone density and Luisa Patton MD structure, unspecified site 03/03/2019 M85.80 Other specified disorders of bone density and Schedule, Laboratory structure, unspecified site 03/03/2019 E55.9 Vitamin D deficiency, unspecified Luisa Patton MD 03/03/2019 E55.9 Vitamin D deficiency, unspecified Schedule, Laboratory 03/03/2019 K58.9 Irritable bowel syndrome without diarrhea Luisa Patton MD 03/03/2019 K58.9 Irritable bowel syndrome without diarrhea Schedule, Laboratory 03/03/2019 J30.1 Allergic rhinitis due to pollen Luisa Patton MD 03/03/2019 J30.1 Allergic rhinitis due to pollen Schedule, Laboratory 03/03/2019 Z01.419 Encounter for gynecological examination Luisa Patton MD (general) (routine) without abnormal findings 03/03/2019 Z01.419 Encounter for gynecological examination Schedule, Laboratory (general) (routine) without abnormal findings 03/03/2019 M85.80 Oth disrd of bone density and structure, [facility] [place] [facility] unspecified site 03/03/2019 E55.9 Vitamin D deficiency, unspecified [facility] 03/03/2019 K58.9 Irritable bowel syndrome without diarrhea [facility] 03/03/2019 J30.1 Allergic rhinitis due to pollen [facility] 03/03/2019 Z01.419 Encntr for hospital manager exam (general) (routine) w/o [facility] abn findings 02/23/2019 M51.16 Intervertebral disc disorders with Marc Lazar DO radiculopathy, lumbar reg 02/23/2019 M99.03 Segmental and somatic dysfunction of lumbar Marc Lazar DO region 02/23/2019 M54.2 Cervicalgia Marc Lazar DO 02/23/2019 M25.561 Pain in RIGHT knee Marc Lazar DO 02/23/2019 K21.9 Gastro-esophageal reflux disease without Marc Lazar DO esophagitis 02/03/2019 R07.9 Chest pain, unspecified Luisa Patton MD 02/03/2019 R10.13 Epigastric pain Luisa Patton MD 02/03/2019 M51.16 Intervertebral disc disorders with Luisa Patton MD radiculopathy, lumbar reg 01/16/2019 M51.16 Intervertebral disc disorders with LazarMarc, DO radiculopathy, lumbar reg 01/16/2019 M99.03 Segmental and somatic dysfunction of lumbar LazarLoriew , DO region 01/16/2019 M54.2 Cervicalgia Lazar, Marc, DO 01/16/2019 M25.561 Pain in RIGHT knee Lazar, Marc, DO 01/16/2019 M99.02 Segmental and somatic dysfunction of thoracic Lazar, Marc, DO region 01/16/2019 M99.04 Segmental and somatic dysfunction of sacral Lazar, Marc , DO region 01/16/2019 M99.05 Segmental and somatic dysfunction of pelvic LazarLoriew , DO region 01/16/2019 M99.09 Segmental and somatic dysfunction of abdomen Lazar, Marc, DO and other regions 12/15/2018 M51.16 Intervertebral disc disorders with LazarMarc laird, DO radiculopathy, lumbar reg 12/15/2018 M99.03 Segmental and somatic dysfunction of lumbar Lazar, Marc , DO region 12/15/2018 M54.2 Cervicalgia LazarMarc, DO 12/15/2018 M25.561 Pain in RIGHT knee LazarMarc laird, DO 12/15/2018 M99.02 Segmental and somatic dysfunction of thoracic Lazar, Marc, DO region 12/15/2018 M99.04 Segmental and somatic dysfunction of sacral Lazar, Marc , DO region 12/15/2018 M99.05 Segmental and somatic dysfunction of pelvic Lazar, Marc , DO region 12/15/2018 M99.06 Segmental and somatic dysfunction of lower Lazar, Marc , DO extremity 11/09/2018 M51.16 Intervertebral disc disorders with LazarMarc laird, DO radiculopathy, lumbar reg 11/09/2018 M99.03 Segmental and somatic dysfunction of lumbar LazarLoriew , DO region 11/09/2018 M54.2 Cervicalgia LazarLori lairdew, DO 11/09/2018 M25.561 Pain in RIGHT knee Marc Lazar DO 11/09/2018 M99.04 Segmental and somatic dysfunction of sacral Marc Lazar DO region 11/09/2018 M99.05 Segmental and somatic dysfunction of pelvic Marc Lazar DO region 10/05/2018 M51.16 Intervertebral disc disorders with Marc Lazar DO radiculopathy, lumbar reg 10/05/2018 M99.03 Segmental and somatic dysfunction of lumbar Marc Lazar DO region 10/05/2018 M54.2 Cervicalgia Marc Lazar DO 10/05/2018 M25.561 Pain in RIGHT knee Marc Lazar DO 10/05/2018 M99.04 Segmental and somatic dysfunction of sacral Marc Lazar DO region 10/05/2018 M99.05 Segmental and somatic dysfunction of pelvic Marc Lazar DO region Plan of Treatment Future Appointment(s):2020 7:40 am - Schedule, Laboratory at [facility]2020 1:00 pm - Luisa Patton MD at [facility]03/30/2019 4:15 pm - Marc Lazar DO at [facility]03/09/2019 - Luisa Patton MDZ00.00 Encounter for general adult medical examination without abnormal findingsComments:Annual medicare well visit done. Updated list of consulting doctors. [facility]. Counseled about fall prevention.Follow up:1- year MEDICARE WELLNESS EXAM and routine with labs prior.Z13.31 Encounter for screening for depressionComments:screening for depression is negative - PHQ2 = 0J30.1 Allergic rhinitis due to pollenNew Labs:CBC With Auto Diff, Scheduled: Comments:Well controlled. Continue current tx.K58.9 Irritable bowel syndrome without diarrheaNew Labs:Comprehensive Met Panel-[facility], Scheduled: 03/04TSH, Scheduled: 03/04/20Comments:IBS is managed with diet control. Continue with this.M85.80 OsteopeniaNew Labs:Vitamin D 25 Hydroxy, Scheduled: Comments:She had DEXA scan done in 03/03/2018, which showed -1.5 spine and - 2.2 hip. She has osteopenia in spine and her hip, which increased her risks of fracture.E78.2 Mixed hyperlipidemiaComments:Hyperlipidemia is diet controlled. Cholesterol is normal. LDL is not at goal, 138. Total cholesterol is 223. HDL is 74. Triglycerides are 57. Liver enzymes are normal. We will repeat lipid panelannually.M51.16 Intervertebral disc disorders with radiculopathy, lumbar regionNew Medication:Diclofenac Potassium 50 mg - by mouth three times a day as neededComments:We will switch the patient back to diclofenac 50 mg TID as needed. She follows up with Dr. Lazar for medication adjustment.E55.9 Vitamin D deficiency, unspecifiedNew Medication:Vitamin D 2000 Unit - 1 by mouth every dayNew Labs:Vitamin D 25 Hydroxy, Scheduled: 03/04/20Comments: Vitamin D level is low. She was recommended to take Vitamin D supplements 1000 to 2000 units daily during the winter season.K21.9 Gastro-esophageal reflux disease without esophagitisComments:Excellent control. Continue current treatment. Functional Status Description No Information Available Mental Status Description No Information Available Referrals Description No Information Available
--- OUTSIDE RECORDS SUMMARY | 2019-05-02 16:56 | XMS REPORT | Continuity of Care Document ---
:1950 External Reference #:[id number] Author Name Marc Lazar, DO Address [address] [place] [address] Care Team Providers Name Role Phone Luisa Patton MD - Family Medicine Care Team Information Supervisor [phone] Stephanie Posadas PT, DPT - Physical Care Team Information Supervisor [phone] Therapist Walter Cruz MD - Neurological Care Team Information Supervisor Surgery [address] Care Team Information Supervisor [phone] Problems Active Problems Provider Date Allergic rhinitis [...] Code Status Date Vaccine Reaction Lot # [id number] Given 12/01/2018 Influenza Vac, Quadrivalent, Split, 0.5mL Dosage, Im Use 32780 Given 03/07/2018 Pneumococcal 23 Immunization Adult Or Immunosuppressed Patient 53354 Given 11/09/2017 Fluzone Highdose Age 65 And Over Preservative & Antibiotic Free 64068 Given 03/05/2017 Prevnar 13 Pneumococal Conjugate Vaccine Q2039 Given 02/16/2017 Flu Vaccine NOS 43177 Given 11/13/2013 Afluria Or Fluvirin Flu Vac Intramuscular [facility] 01799 Refused 02/22/2018 Shingrix (Shingles) Zoster Vaccine HZV, Recombinant , Subunit, Adj 13013 Refused 02/22/2018 Prevnar 13 Pneumococal Conjugate Vaccine Vital Signs Date Vital Result Comment 03/30/2019 4:18pm Weight 128.00 lb Heart Rate 72 /min BP Systolic 114 mmHg BP Diastolic 66 mmHg Respiratory Rate 17 /min Height 63.5 inches 5'3.50" BMI (Body Mass Index) 22.3 kg/m2 03/09/2019 10:53am Weight 125.00 lb Heart Rate 72 /min BP Systolic 112 mmHg BP Diastolic 70 mmHg Respiratory Rate 18 /min Height 63.5 inches 5'3.50" O2 % BldC Oximetry 97 % Ra BMI (Body Mass Index) 21.8 kg/m2 Results Test Acquired Date Facility Test [...] High 20-99 27 CBC with Auto 02/03/2019 [facility] White Blood 7.3 K/uL Normal [...] 40.4-72.8 Lymph % 28.5 % Normal 20.0-42.0 Reeves % 8.3 % Normal 4.3-13.2 Eo% 2.7 % Normal 0.0-6.6 Bas% 0.8 % Normal 0.0-1.1 Immature Grans 0.3 % Normal 0.0-5.0 NRBC % 0.0 /100WBC < 10/ 100 WBC Neut# 4.35 K/uL Normal 1.8-7.0 Lymph # 2.09 K/uL Normal 1.0-4.0 Reeves # 0.61 K/uL Normal 0.3-0.9 Eos # 0.20 K/uL Normal 0.0-0.5 Baso # 0.06 K/uL Normal 0.0-0.1 Immature Grans Absolute 0.02 K/uL NRBC # 0.00 K/uL Comprehensive 02/03/2019 [facility] Glucose 94 mg/dL Normal 74-106 [...] 75 U/L Normal 45-117 Laboratory test 02/03/2019 [facility] Troponin-I < 0.015 ng/mL 30 [...] ng/mL: Consistent Procedures Date Code Description Status 03/30/2019 59121 Omt 7-8 Body Regions Completed 02/23/2019 56218 Omt 5-6 Body Regions Completed 02/03/2019 86831 Electrocardiogram Complete Completed 01/16/2019 84381 Omt 5-6 Body Regions Completed 12/15/2018 37225 Omt 5-6 Body Regions Completed 11/09/2018 81042 Omt 3-4 Body Regions Completed 10/05/2018 26858 Omt 3-4 Body Regions Completed 03/03/2018 667412454 Bone Mineral Density Test Completed 12/13/2015 136312627 Bone Mineral Density Test Completed 09/24/2014 97073968 Mammogram Completed 10/16/2013 08875197 Colonoscopy Completed Medical Devices Description No Information Available Encounters Type Date Location Provider Dx Diagnosis Office Visit 03/09/2019 [facility] Luisa Patton MD Z00.00 Encntr for general [...] disease without esophagitis Office Visit 02/03/2019 3:15p [facility] Luisa Patton MD R07.9 Chest pain, unspecified R10.13 Epigastric pain M51.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, lumbar region Office Visit 11/09/2018 4:15p [facility] Marc Lazar DO M51.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, lumbar region M99.03 Segmental and somatic dysfunction of lumbar region M54.2 Cervicalgia M25.561 Pain in RIGHT knee M99.04 Segmental and somatic dysfunction of sacral region M99.05 Segmental and somatic dysfunction of pelvic region Office Visit 10/05/2018 4:15p [facility] Marc Lazar DO M51.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, lumbar region M99.03 Segmental and somatic dysfunction of lumbar region M54.2 Cervicalgia M25.561 Pain in RIGHT knee M99.04 Segmental and somatic dysfunction of sacral region M99.05 Segmental and somatic dysfunction of pelvic region Assessments Date Code Description Provider 03/30/2019 M51.16 Intervertebral disc disorders with Marc Lazar DO radiculopathy, lumbar reg 03/30/2019 M99.03 Segmental and somatic dysfunction of lumbar Marc Lazar DO region 03/30/2019 M54.2 Cervicalgia Marc Lazar DO 03/30/2019 M25.561 Pain in RIGHT knee Marc Lazar DO 03/30/2019 K21.9 Gastro-esophageal reflux disease without Marc Lazar DO esophagitis 03/09/2019 Z00.00 Encounter for general adult medical [...] Luisa Patton MD esophagitis 03/03/2019 Z79.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 [facility] 03/03/2019 M85.80 Other specified disorders of bone density and Luisa Ptaton MD structure, unspecified site 03/03/2019 M85.80 Other [...] 03/03/2019 J30.1 Allergic rhinitis due to pollen [facility] 03/03/2019 Z01.419 Encounter for gynecological examination [facility] (general) (routine) without abnormal findings [...] reflux disease without Marc Lazar DO esophagitis 02/23/2019 M99.02 Segmental and somatic dysfunction of thoracic Marc Lazar DO region 02/23/2019 M99.04 Segmental and somatic dysfunction of sacral Marc Lazar DO region 02/23/2019 M99.05 Segmental and somatic dysfunction of pelvic Marc Lazar DO region 02/23/2019 M99.09 Segmental and somatic dysfunction of abdomen Marc Lazar DO and other regions 02/03/2019 R07.9 Chest pain, unspecified Luisa Patton MD 02/03/2019 R10.13 Epigastric pain Luisa Patton MD 02/03/2019 M51.16 Intervertebral disc disorders with Luisa Patton MD radiculopathy, lumbar reg 01/16/2019 M51.16 Intervertebral disc disorders with Marc Lazar DO radiculopathy, lumbar reg 01/16/2019 M99.03 Segmental and somatic dysfunction of lumbar Marc Lazar DO region 01/16/2019 M54.2 Cervicalgia LazarMarc laird, DO 01/16/2019 M25.561 Pain in RIGHT knee LazarMarc laird, DO 01/16/2019 M99.02 Segmental and somatic dysfunction [...] dysfunction of thoracic LazarMarc laird, DO region 12/15/2018 M99.04 Segmental and somatic dysfunction of sacral LazarMarc laird , DO region 12/15/2018 M99.05 Segmental and somatic dysfunction of pelvic LazarMarc laird , DO region 12/15/2018 M99.06 Segmental and somatic dysfunction of lower LazarMarc alird , extremity 11/09/2018 M51.16 Intervertebral disc disorders with Marc Lazar, radiculopathy, lumbar reg 11/09/2018 M99.03 Segmental and somatic dysfunction of lumbar LazarMarc laird , region 11/09/2018 M54.2 Cervicalgia LazarMarc laird, DO 11/09/2018 M25.561 Pain in RIGHT knee LazarMarc laird, DO 11/09/2018 M99.04 Segmental and somatic dysfunction of sacral LazarMarc , DO region 11/09/2018 M99.05 Segmental and somatic dysfunction of pelvic LazarMarc laird , DO region 10/05/2018 M51.16 Intervertebral disc disorders with LazarMarc laird, DO radiculopathy, lumbar reg 10/05/2018 M99.03 Segmental and somatic dysfunction of lumbar LazarMarc , DO region 10/05/2018 M54.2 Cervicalgia Lazar, MarcDO 10/05/2018 M25.561 Pain in RIGHT knee Marc Lazar DO 10/05/2018 M99.04 Segmental and somatic dysfunction of sacral Lazar Marc DO region 10/05/2018 M99.05 Segmental and somatic dysfunction of pelvic Marc Lazar DO region Plan of Treatment Future Appointment(s):04/19/2019 4:15 pm - Marc Lazar DO at [facility]2020 7:40 am - Schedule, Laboratory at [facility]03/11/2020 1:00 pm - Luisa Patton MD at [facility]03/30/2019 - Marc Lazar, DOM51.16 Intervertebral disc disorders [...] manipulation today and she tolerated this well.Follow up:Follow up as scheduled.M99.03 Segmental and somatic dysfunction of lumbar soevhlM68.2 CervicalgiaComments:Improved at the present time. Can take Tizandine as needed for this.M25.561 Pain in RIGHT kneeK21.9 Gastro- esophageal reflux disease without esophagitisComments:Continue taking Pantoprazole as directed. Can also take Famotidine. Will continue to monitor. Functional Status Description No Information Available Mental Status Description No Information Available Referrals Description No Information Available
--- OUTSIDE RECORDS SUMMARY | 2019-05-02 16:56 | XMS REPORT | Continuity of Care Document ---
:1950 External Reference #:[id number] Author Name Marc Lazar, DO Address [address] [place] [address] Care Team Providers Name Role Phone Luisa Patton MD - Family Medicine Care Team Information Design Engineer Products [phone] Stephanie Posadas PT, DPT - Physical Care Team Information Design Engineer Products Therapist Walter Cruz MD - Neurological Care Team Information Design Engineer Products Surgery [address] Care Team Information Design Engineer Products [phone] Problems Active Problems Provider Date Allergic rhinitis [...] Code Status Date Vaccine Reaction Lot # [id number] Given 12/01/2018 Influenza Vac, Quadrivalent, Split, 0.5mL Dosage, Im Use 70194 Given 03/07/2018 Pneumococcal 23 Immunization Adult Or Immunosuppressed Patient 08220 Given 11/09/2017 Fluzone Highdose Age 65 And Over Preservative & Antibiotic Free 59678 Given 03/05/2017 Prevnar 13 Pneumococal Conjugate Vaccine Q2039 Given 02/16/2017 Flu Vaccine NOS 53956 Given 11/13/2013 Afluria Or Fluvirin Flu Vac Intramuscular [facility] 75475 Refused 02/22/2018 Shingrix (Shingles) Zoster Vaccine HZV, Recombinant , Subunit, Adj 39764 Refused 02/22/2018 Prevnar 13 Pneumococal Conjugate Vaccine [...] High 20-99 27 CBC with Auto 02/03/2019 [facility] White Blood 7.3 K/uL Normal [...] 40.4-72.8 Lymph % 28.5 % Normal 20.0-42.0 [place] % 8.3 % Normal 4.3-13.2 Eo% 2.7 % Normal 0.0-6.6 Bas% 0.8 % Normal 0.0-1.1 Immature Grans 0.3 % Normal 0.0-5.0 NRBC % 0.0 /100WBC < 10/ 100 WBC Neut# 4.35 K/uL Normal 1.8-7.0 Lymph # 2.09 K/uL Normal 1.0-4.0 [place] # 0.61 K/uL Normal 0.3-0.9 Eos # 0.20 K/uL Normal 0.0-0.5 Baso # 0.06 K/uL Normal 0.0-0.1 Immature Grans Absolute 0.02 K/uL NRBC # 0.00 K/uL Comprehensive 02/03/2019 [facility] Glucose 94 mg/dL Normal 74-106 Metabolic Panel [...] 75 U/L Normal 45-117 Laboratory test 02/03/2019 [facility] Troponin-I < 0.015 ng/mL 30 finding (315)- [...] Consistent Procedures Date Code Description Status 04/19/2019 81632 Omt 7-8 Body Regions Completed 03/30/2019 06900 Omt 7-8 Body Regions Completed 02/23/2019 63563 Omt 5-6 Body Regions Completed 02/03/2019 97158 Electrocardiogram Complete Completed 01/16/2019 89648 Omt 5-6 Body Regions Completed 12/15/2018 21492 Omt 5-6 Body Regions Completed 11/09/2018 09603 Omt 3-4 Body Regions Completed 03/03/2018 146032439 Bone Mineral Density Test Completed 12/13/2015 243157384 Bone Mineral Density Test Completed 09/24/2014 77028354 Mammogram Completed 10/16/2013 91783048 Colonoscopy Completed Medical Devices Description No Information Available Encounters Type Date Location Provider Dx Diagnosis Office Visit 03/09/2019 [facility] Luisa Patton MD Z00.00 Encntr for general [...] disease without esophagitis Office Visit 02/03/2019 3:15p [facility] Luisa Patton MD R07.9 Chest pain, unspecified R10.13 Epigastric pain M51.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, lumbar region Office Visit 11/09/2018 4:15p [facility] Marc Lazar DO M51.16 Intervertebral disc [...] 04/19/2019 M25.561 Pain in RIGHT knee Marc Lazar DO 04/19/2019 K21.9 Gastro-esophageal reflux disease without Marc Lazar DO esophagitis 03/30/2019 M51.16 Intervertebral disc disorders with Marc Lazar DO radiculopathy, lumbar reg 03/30/2019 M99.03 Segmental and somatic dysfunction of lumbar Marc Lazar DO region 03/30/2019 M54.2 Cervicalgia Marc Lazar DO 03/30/2019 M25.561 Pain in RIGHT knee Marc Lazar DO 03/30/2019 K21.9 Gastro-esophageal reflux disease without Marc Lazar DO esophagitis 03/30/2019 M99.00 Segmental and somatic dysfunction of head Marc Lazar DO region 03/30/2019 M99.01 Segmental and somatic dysfunction of cervical Marc Lazar DO region 03/30/2019 M99.02 Segmental and somatic dysfunction of thoracic Marc Lazar DO region 03/30/2019 M99.04 Segmental and somatic dysfunction of sacral Marc Lazar DO region 03/30/2019 M99.05 Segmental and somatic dysfunction of pelvic Marc Lazar DO region 03/30/2019 M99.07 Segmental and somatic dysfunction of upper Marc Lazar DO extremity 03/09/2019 Z00.00 Encounter for general adult [...] Luisa Patton MD esophagitis 03/03/2019 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 [facility] 03/03/2019 M85.80 Other specified disorders of bone density and Luisa Patton MD structure, unspecified site 03/03/2019 M85.80 Other specified disorders of bone density and [facility] structure, unspecified site 03/03/2019 E55.9 [facility] D deficiency, [facility] 03/03/2019 K58.9 Irritable bowel syndrome without diarrhea [facility] 03/03/2019 M85.80 Other specified disorders of bone density and Schedule, Laboratory structure, unspecified site 03/03/2019 E78.2 Mixed hyperlipidemia [facility] 03/03/2019 E55.9 Vitamin D deficiency, unspecified Luisa Patton MD 03/03/2019 J30.1 Allergic rhinitis due to pollen [facility] 03/03/2019 Z01.419 Encounter for gynecological examination [facility] (general) (routine) without abnormal findings [...] of pelvic Lazar, Marc , DO region 02/23/2019 M99.09 Segmental and somatic dysfunction of abdomen LazarMarc laird, DO and other regions 02/03/2019 R07.9 Chest pain, unspecified Luisa Patton MD 02/03/2019 R10.13 Epigastric pain Luisa Patton MD 02/03/2019 M51.16 Intervertebral disc disorders with Luisa Patton MD radiculopathy, lumbar reg 01/16/2019 M51.16 Intervertebral disc disorders with LazarMarc laird, DO radiculopathy, lumbar reg 01/16/2019 M99.03 Segmental and somatic dysfunction of lumbar LazarMarc , DO region 01/16/2019 M54.2 Cervicalgia LazarMarc, DO 01/16/2019 M25.561 Pain in RIGHT knee LazarMarc, DO 01/16/2019 M99.02 Segmental and somatic dysfunction of thoracic LazarMarc, DO region 01/16/2019 M99.04 Segmental and somatic dysfunction of sacral Lazar, Marc , DO region 01/16/2019 M99.05 Segmental and somatic dysfunction of pelvic Lazar, Marc , DO region 01/16/2019 M99.09 Segmental and somatic dysfunction of abdomen LazarMarc, DO and other regions 12/15/2018 M51.16 Intervertebral disc disorders with LazarMarc laird, DO radiculopathy, lumbar reg 12/15/2018 M99.03 Segmental and somatic dysfunction of lumbar LazarMarc , DO region 12/15/2018 M54.2 Cervicalgia LazarMarc, DO 12/15/2018 M25.561 Pain in RIGHT knee LazarMarc, DO 12/15/2018 M99.02 Segmental and somatic dysfunction of thoracic Lazar, Marc, DO region 12/15/2018 M99.04 Segmental and somatic dysfunction of sacral Lazar, Marc , DO region 12/15/2018 M99.05 Segmental and somatic dysfunction of pelvic Lazar, Marc , DO region 12/15/2018 M99.06 Segmental and somatic dysfunction of lower LazarLoriew , DO extremity 11/09/2018 M51.16 Intervertebral disc disorders with LazarMarc laird, DO radiculopathy, lumbar reg 11/09/2018 M99.03 Segmental and somatic dysfunction of lumbar Marc Lazar , region 11/09/2018 M54.2 Cervicalgia Marc LazarDO 11/09/2018 M25.561 Pain in RIGHT knee Marc Lazar, DO 11/09/2018 M99.04 Segmental and somatic dysfunction of sacral Marc Lazar DO region 11/09/2018 M99.05 Segmental and somatic dysfunction of pelvic Nagi Marc , DO region Plan of Treatment Future Appointment(s):05/17/2019 4:15 pm - Marc Lazar DO at [facility]2020 7:40 am - Schedule, Laboratory at [facility]03/11/2020 1:00 pm - Luisa Patton MD at [facility]04/19/2019 - Marc Lazar, DOM51.16 Intervertebral disc disorders [...] scheduled.M99.03 Segmental and somatic dysfunction of lumbar wiqpzfN64.2 CervicalgiaComments:Improved at the present time. Can take Tizandine as needed for this.M25.561 Pain in RIGHT kneeK21.9 Gastro-esophageal reflux disease without esophagitisComments:Continue taking Pantoprazole as directed. Can also take Famotidine. Will continue to monitor. Functional Status Description No Information Available Mental Status Description No Information Available Referrals Description No Information Available
--- OUTSIDE RECORDS SUMMARY | 2019-05-02 16:56 | XMS REPORT | Continuity of Care Document ---
:1950 External Reference #:[id number] Author Name Marc Lazar DO (transmitted by agent of provider Holli GREEN) Address [address] [place] [address] Care Team Providers Name Role Phone Luisa Patton MD - Family Medicine Care Team Information Hospital Chief Financial Officer [phone] Stephanie Posadas PT, DPT - Physical Care Team Information Hospital Chief Financial Officer [phone] Therapist Walter Cruz MD - Neurological Care Team Information Hospital Chief Financial Officer [phone] Care Team Information Hospital Chief Financial Officer [phone] Problems Active Problems Provider Date Allergic rhinitis [...] Code Status Date Vaccine Reaction Lot # 00888 Given 12/01/2018 Influenza Vac, Quadrivalent, Split, 0.5mL Dosage, Im Use 81576 Given 03/07/2018 Pneumococcal 23 Immunization Adult Or Immunosuppressed Patient 82834 Given 11/09/2017 Fluzone Highdose Age 65 And Over Preservative & Antibiotic Free 13736 Given 03/05/2017 Prevnar 13 Pneumococal Conjugate Vaccine Q2039 Given 02/16/2017 Flu Vaccine NOS 78345 Given 11/13/2013 Afluria Or Fluvirin Flu Vac Intramuscular [facility] 15100 Refused 02/22/2018 Shingrix (Shingles) Zoster Vaccine HZV, Recombinant , Subunit, Adj 00825 Refused 02/22/2018 Prevnar 13 Pneumococal Conjugate Vaccine [...] High 20-99 27 CBC with Auto 02/03/2019 [facility] White Blood 7.3 K/uL Normal [...] 40.4-72.8 Lymph % 28.5 % Normal 20.0-42.0 [place] % 8.3 % Normal 4.3-13.2 Eo% 2.7 % Normal 0.0-6.6 Bas% 0.8 % Normal 0.0-1.1 Immature Grans 0.3 % Normal 0.0-5.0 NRBC % 0.0 /100WBC < 10/ 100 WBC Neut# 4.35 K/uL Normal 1.8-7.0 Lymph # 2.09 K/uL Normal 1.0-4.0 [place] # 0.61 K/uL Normal 0.3-0.9 Eos # 0.20 K/uL Normal 0.0-0.5 Baso # 0.06 K/uL Normal 0.0-0.1 Immature Grans Absolute 0.02 K/uL NRBC # 0.00 K/uL Comprehensive 02/03/2019 [facility] Glucose 94 mg/dL Normal 74-106 [...] 75 U/L Normal 45-117 Laboratory test 02/03/2019 [facility] Troponin-I < 0.015 ng/mL 30 [...] Consistent Procedures Date Code Description Status 04/19/2019 82497 Omt 7-8 Body Regions Completed 03/30/2019 87593 Omt 7-8 Body Regions Completed 02/23/2019 86856 Omt 5-6 Body Regions Completed 02/03/2019 88685 Electrocardiogram Complete Completed 01/16/2019 48384 Omt 5-6 Body Regions Completed 12/15/2018 70151 Omt 5-6 Body Regions Completed 11/09/2018 79801 Omt 3-4 Body Regions Completed 03/03/2018 433777691 Bone Mineral Density Test Completed 12/13/2015 051111564 Bone Mineral Density Test Completed 09/24/2014 31355505 Mammogram Completed 10/16/2013 92041240 Colonoscopy Completed Medical Devices Description No Information Available Encounters Type Date Location Provider Dx Diagnosis Office Visit 03/09/2019 [facility] Luisa Patton MD Z00.00 Encntr for general [...] esophagitis Office Visit 02/03/2019 3:15p [facility] Luisa Patton MD R07.9 Chest pain, unspecified R10.13 Epigastric pain M51.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, lumbar region Office Visit 11/09/2018 4:15p [facility] Marc Lazar DO M51.16 Intervertebral disc disorders [...] dysfunction of cervical LazarMarc laird DO region 03/30/2019 M99.02 Segmental and somatic dysfunction of thoracic LazarMarc laird DO region 03/30/2019 M99.04 Segmental and somatic dysfunction of sacral LazarMarc laird DO region 03/30/2019 M99.05 Segmental and somatic [...] Luisa Patton MD esophagitis 03/03/2019 Z79.899 Other custodial (current) drug therapy [facility] 03/03/2019 M85.80 Other specified disorders of bone density and Luisa Patton MD structure, unspecified site 03/03/2019 M85.80 Other specified disorders of bone density and [facility] structure, unspecified site 03/03/2019 E55.9 Vitamin D deficiency, [facility] 03/03/2019 K58.9 Irritable bowel syndrome without diarrhea [facility] 03/03/2019 M85.80 Other specified disorders of bone density and Schedule, Laboratory structure, unspecified site 03/03/2019 E78.2 Mixed hyperlipidemia [facility] 03/03/2019 E55.9 Vitamin D deficiency, unspecified Luisa Patton MD 03/03/2019 J30.1 Allergic rhinitis due to pollen [facility] 03/03/2019 Z01.419 Encounter for gynecological [...] M99.04 Segmental and somatic dysfunction of sacral Lori Lazarew , DO region 02/23/2019 M99.05 Segmental and [...] laird , DO region 01/16/2019 M54.2 Cervicalgia Lazar, Marc, DO 01/16/2019 M25.561 Pain in RIGHT knee LazarMarc laird, DO 01/16/2019 M99.02 Segmental and somatic dysfunction of thoracic LazarMarc, DO region 01/16/2019 M99.04 Segmental and somatic dysfunction of sacral Lazar, Marc , DO region 01/16/2019 M99.05 Segmental and somatic dysfunction of pelvic LazarMarc , DO region 01/16/2019 M99.09 Segmental and somatic dysfunction of abdomen LazarMarc laird, DO and other regions 12/15/2018 M51.16 Intervertebral disc disorders with LazarLori lairdew, DO radiculopathy, lumbar reg 12/15/2018 M99.03 Segmental and somatic dysfunction of lumbar LazarMarc , DO region 12/15/2018 M54.2 Cervicalgia LazarMarc laird, DO 12/15/2018 M25.561 Pain in RIGHT knee LazarMarc laird, DO 12/15/2018 M99.02 Segmental and somatic dysfunction of thoracic LazarMarc, DO region 12/15/2018 M99.04 Segmental and somatic dysfunction of sacral LazarMarc , DO region 12/15/2018 M99.05 Segmental and somatic dysfunction of pelvic LazarMarc , DO region 12/15/2018 M99.06 Segmental and somatic dysfunction of lower LazarMarc , DO extremity 11/09/2018 M51.16 Intervertebral disc disorders with Lazar Marc, DO radiculopathy, lumbar reg 11/09/2018 M99.03 Segmental and somatic dysfunction of lumbar Marc Lazar DO region 11/09/2018 M54.2 Cervicalgia Marc Lazar DO 11/09/2018 M25.561 Pain in RIGHT knee Marc Lazar DO 11/09/2018 M99.04 Segmental and somatic dysfunction of sacral Marc Lazar DO region 11/09/2018 M99.05 Segmental and somatic dysfunction of pelvic Marc Lazar region Plan of Treatment Future Appointment(s):05/17/2019 4:15 pm - Marc Lazar DO at [facility]2020 7:40 am - Schedule, Laboratory at [facility]03/11/2020 1:00 pm - Luisa Patton MD at [facility]04/19/2019 - Marc Lazar, DOM51.16 Intervertebral disc disorders [...] scheduled.M99.03 Segmental and somatic dysfunction of lumbar lmedeyR34.2 CervicalgiaComments:Improved at the present time. Can take Tizandine as needed for this.M25.561 Pain in RIGHT kneeK21.9 Gastro-esophageal reflux disease without esophagitisComments:Continue taking Pantoprazole as directed. Can also take Famotidine. Will continue to monitor. Functional Status Description No Information Available Mental Status Description No Information Available Referrals Description No Information Available
== END 2019-05-02 17:03 | disposition home health service (06) ==
LOC: UCCORT 15:49
DX: R07.89 Other chest pain (principal); R05 Cough; R09.81 Nasal congestion; Z88.1 Allergy status to other antibiotic agents; Z88.5 Allergy status to narcotic agent; Z88.0 Allergy status to penicillin; Z88.2 Allergy status to sulfonamides; Z87.891 Personal history of nicotine dependence
CPT/HCPCS: 93005; 99212; A9270-GY; G0463

== ENCOUNTER 2020-11-21 11:00 | Observation (INO) ==
[~2020-11-21 11:00] MED LIST: Buffered Lidocaine 1% SYRIN 1 ml INTRADERM ONE; DiMENhydriNATE IV 50 mg/ml 1 ml VIAL IV PUSH PRN; Lactated Ringers 1000 ml BAG 1,000 ML IV SCH; Naloxone 0.4 mg VIAL 0.4 mg/ml 1 ml VIAL IV PRN; fentaNYL 100 mcg/2 ml 50 MCG/ML VIAL IV PRN
[2020-11-21] MEDS ORDERED: Clindamycin 900 MG/D5W BAG 900 MG/50 ML BAG IVPB ONE (11:12)
[2020-11-21] MEDS ORDERED: Lidocaine 2% PF 5 ML VIAL ONE ×2 (12:09→13:22)
[2020-11-21] MEDS ORDERED: Dexamethasone IV 4 MG/ML VIAL 1 ml VIAL ONE (12:11)
[2020-11-21] MEDS ORDERED: Ondansetron 4 mg VIAL 2 MG/ML 2 ml VIAL ONE (12:11)
[2020-11-21] MEDS ORDERED: Buffered Lidocaine 1% SYRIN 1 ml INTRADERM ONE (12:37)
[2020-11-21] MEDS ORDERED: Bupivacaine 0.5% SDV PF 30ML VIAL ONE (13:22)
[2020-11-21] MEDS ORDERED: Midazolam 2 mg/2 ml VIAL 1 mg/ml 2 ml VIAL (2 mg) ONE (13:23)
[2020-11-21] MEDS ORDERED: Ropivacaine 5 MG/ML 20 ML VIAL 0.5% (100 MG) ONE (13:40)
[2020-11-21] MEDS ORDERED: HYDROcodone/ACETAMIN 5/325 mg TAB PO ONE (14:07)
[2020-11-21] MEDS ORDERED: EPHEDrine (Pressors) 50 MG/ML VIAL ONE (14:17)
[2020-11-21] MEDS ORDERED: Propofol 10 MG/ML 20 ML BTL ONE (14:20)
[2020-11-21] MEDS ORDERED: Phenylephrine IV 10 MG/ML 1 ml VIAL ONE (14:23)
[2020-11-21] MEDS ORDERED: Lactulose 30 ml UDC PO PRN (15:41)
[2020-11-21] MEDS ORDERED: Magnesium Hydroxide LIQ 30 ML UDC PO PRN (15:41)
[2020-11-21] MEDS ORDERED: Morphine 2 MG/ML SYRINGE IV PRN (15:41)
[2020-11-21] MEDS ORDERED: diPHENhydraMINE IV 50 MG/ML 1 ml VIAL (BENADRYL) IV PRN (15:41)
[2020-11-21] MEDS ORDERED: diPHENhydraMINE 25 mg TAB PO PRN (15:41)
[2020-11-21] MEDS ORDERED: Ondansetron ODT 4 mg TAB 4 MG TAB PO PRN (15:41)
[2020-11-21] MEDS ORDERED: Ondansetron 4 mg VIAL 2 MG/ML 2 ml VIAL IV PRN (15:41)
[2020-11-21] MEDS ORDERED: Clindamycin 600 MG/D5W BAG 600 MG/50 ML BAG IV SCH (16:00)
[2020-11-21] MEDS ORDERED: HYDROcodone/ACETAMIN 5/325 mg TAB ONE (17:17)
[2020-11-21] MEDS: Lactated Ringers 1000 ml BAG 1,000 ML IV SCH (18:25)
[2020-11-21] MEDS: HYDROcodone/ACETAMIN 5/325 mg TAB PO PRN (21:16)
[2020-11-21] MEDS: Magnesium Hydroxide LIQ 30 ML UDC PO SCH (21:16)
[2020-11-21] MEDS: Clindamycin 600 MG/D5W BAG 600 MG/50 ML BAG IV SCH (23:50)
[2020-11-22] MEDS: HYDROcodone/ACETAMIN 5/325 mg TAB PO PRN ×3 (03:43→15:17)
[2020-11-22] MEDS: Lactated Ringers 1000 ml BAG 1,000 ML IV SCH (04:52)
[2020-11-22] MEDS: Clindamycin 600 MG/D5W BAG 600 MG/50 ML BAG IV SCH ×2 (06:31→15:18)
[2020-11-22 06:56] LABS: Hematocrit 31 % (35-47); Hemoglobin 10.9 g/dL (12.0-16.0); Mean Platelet Volume 9.9 fL (7.4-10.4); Platelet Count 178 10^3/uL (150-450)
[2020-11-22 07:11] LABS: Calcium 9.4 mg/dL (8.6-10.3); Potassium 4.7 mmol/L (3.5-5.0)
[2020-11-22] MEDS: Magnesium Hydroxide LIQ 30 ML UDC PO SCH (08:46)
[2020-11-22] MEDS ORDERED: Flu vaccine *QUAD* 2021-22* 0.5 ML SYRINGE IM ONE (09:00)
[2020-11-22] MEDS ORDERED: Vitamin THERAPEUTIC TAB PO SCH (09:00)
[2020-11-22 14:13] VITALS: BP 101/62
== END 2020-11-22 17:00 | disposition home or self-care (01) ==
LOC: OR 11:00 → SSU 11:00
PROVIDERS: ADMIT Orthopaedic Surgery Adult Reconstructive Orthopaedic Surgery; ATTEND Orthopaedic Surgery Adult Reconstructive Orthopaedic Surgery

== ENCOUNTER 2023-07-22 11:54 | Observation (INO) ==
[~2023-07-22 11:54] MED LIST changes: -Buffered Lidocaine 1% SYRIN 1 ml INTRADERM ONE; -DiMENhydriNATE IV 50 mg/ml 1 ml VIAL IV PUSH PRN; -Lactated Ringers 1000 ml BAG 1,000 ML IV SCH; +Metoclopramide 5 MG/ML VIAL (10 mg) IV PRN; +NS 0.45% 1000 ml BAG 1,000 ML IV SCH; -fentaNYL 100 mcg/2 ml 50 MCG/ML VIAL IV PRN
[2023-07-22] MEDS ORDERED: ceFAZolin 2 GM PREMIX 2 GM/50 ML BAG ONE (12:45)
[2023-07-22] MEDS: Buffered Lidocaine 1% SYRIN 1 ml INTRADERM ONE (12:58)
[2023-07-22] MEDS: Lactated Ringers 1000 ml BAG 1,000 ML IV SCH ×2 (12:58→22:17)
[2023-07-22] MEDS: Scopolamine 1 mg/72hr PATCH TRANSDERM ONE (12:58)
[2023-07-22 13:05] LABS: Rapid COVID-19 Molecular Undetected (Undetected)
[2023-07-22] MEDS ORDERED: Lidocaine 2% PF 5 ML VIAL ONE (13:18)
[2023-07-22] MEDS ORDERED: Propofol 10 MG/ML 20 ML BTL ONE ×3 (13:18→15:46)
[2023-07-22] MEDS ORDERED: Midazolam 2 mg/2 ml VIAL 1 mg/ml 2 ml VIAL (2 mg) ONE (13:20)
[2023-07-22] MEDS ORDERED: Remifentanil 2 MG VIAL ONE (13:21)
[2023-07-22] MEDS ORDERED: ROPIVACAINE 5 MG/ML 30 ML BTL (0.5%) ONE ×2 (13:30→14:23)
[2023-07-22] MEDS ORDERED: Scopolamine 1 mg/72hr PATCH ONE (14:18)
[2023-07-22] MEDS ORDERED: Dexamethasone IV 4 MG/ML VIAL 1 ml VIAL ONE (14:40)
[2023-07-22] MEDS ORDERED: Ondansetron 4 mg VIAL 2 MG/ML 2 ml VIAL ONE ×2 (14:40→18:00)
[2023-07-22] MEDS ORDERED: HYDROmorphone 0.5 MG/0.5 ML SYRINGE ONE ×2 (15:16→16:42)
[2023-07-22] MEDS ORDERED: Lactulose 30 ml UDC PO PRN (15:28)
[2023-07-22] MEDS ORDERED: Calcium Carb (TUMS) 500 mg CHEW TAB PO PRN (15:28)
[2023-07-22] MEDS ORDERED: Ondansetron 4 mg VIAL 2 MG/ML 2 ml VIAL IV PRN (15:28)
[2023-07-22] MEDS ORDERED: Morphine 2 MG/ML SYRINGE IV PRN (15:28)
[2023-07-22] MEDS ORDERED: Magnesium Hydroxide LIQ 30 ML UDC PO PRN (15:28)
[2023-07-22] MEDS ORDERED: Ondansetron ODT 4 mg TAB 4 MG TAB PO PRN (15:28)
[2023-07-22] MEDS ORDERED: fentaNYL 100 mcg/2 ml 50 MCG/ML VIAL ONE (17:19)
[2023-07-22] MEDS: fentaNYL 100 mcg/2 ml 50 MCG/ML VIAL IV PRN (17:20)
[2023-07-22] MEDS: Ondansetron 4 mg VIAL 2 MG/ML 2 ml VIAL IV PRN (18:03)
[2023-07-22] MEDS: Magnesium Hydroxide LIQ 30 ML UDC PO SCH (22:18)
[2023-07-22] MEDS: ceFAZolin 2 GM in NS PREMIX 2 GM/100 ML BAG IVPB SCH (22:32)
[2023-07-23] MEDS: HYDROcodone/ACETAMIN 5/325 mg TAB PO PRN (00:38)
[2023-07-23 05:51] LABS: Hematocrit 30.7 % (35-45); Hemoglobin 10.4 g/dL (11.5-14.3); Mean Platelet Volume 9.2 fL (7.5-11.2); Platelet Count 256 10^3/uL (150-450)
[2023-07-23 06:14] LABS: Calcium 9.3 mg/dL (8.6-10.3); Creatinine, Serum 0.75 mg/dL (0.51-0.95); Potassium 4.3 mmol/L (3.5-5.0); eGFR CKD-EPI 85.1 (>60)
[2023-07-23] MEDS: Acetaminophen IV 1 GM/100ML 1,000 MG/100 ML BAG IV ONE (07:51)
[2023-07-23] MEDS: Vitamin THERAPEUTIC TAB PO SCH (09:04)
[2023-07-23 14:10] VITALS: BP 122/70
== END 2023-07-23 15:17 | disposition home or self-care (01) ==
LOC: OR 11:54 → SSU 11:54
PROVIDERS: ADMIT Orthopaedic Surgery Adult Reconstructive Orthopaedic Surgery; ATTEND Orthopaedic Surgery Adult Reconstructive Orthopaedic Surgery